=== PATIENT | female | born 1960 | race Caucasian/White ===

== ENCOUNTER 2018-03-16 06:15 | Outpatient (CLI) | payer MEDICAID ==
[2018-03-15 12:24] LABS: BASOPHILS 0.1 % (0-2); EOSINOPHILS 0.8 % (0-7); HEMATOCRIT 42.3 % (36.0-48.0); HEMOGLOBIN 14.9 g/dL (12-16); IMMATURE GRANULOCYTES 0.3 % (0-5); LYMPHOCYTES 22.3 % (15-50); MCH 31.4 pg (26.0-34.0); MCHC 35.2 g/dL (31.0-37.0); MCV 89.2 fL (80.0-100.0); MEAN PLATELET VOLUME 9.2 fL (7.4-10.4); MONOCYTES 5.4 % (2-11); NEUTROPHILS 71.1 % (40-80); PLATELET COUNT 247 10x3/uL (130-400); RBC 4.74 10x6/uL (4.00-5.40); RDW 12.2 % (11.5-14.5); WBC 14.5 10x3/uL (4.8-10.8)
[2018-03-15 12:58] LABS: CALC OSMOLALITY 284 mosm/kg (275-300); CALCIUM 9.2 mg/dL (8.5-10.1); CARBON DIOXIDE 29.9 mmol/L (21.0-32.0); CHLORIDE - SERUM 101 mmol/L (98-107); CREATININE - SERUM 0.7 mg/dL (0.6-1.3); GLUCOSE 159 mg/dL (74-106); POTASSIUM - SERUM 4.8 mmol/L (3.5-5.1); SODIUM 139 mmol/L (136-145); UREA NITROGEN 23 mg/dL (7-18); eGFR NON AFRICAN AMERICAN > 90 mL/min (90-120)
[~2018-03-16] VITALS: Ht 160 cm; Wt 84.8 kg
[~2018-03-16 06:15] MED LIST: GLUCOPHAGE1000 MG PO; IBUPROFEN800 MG PO; MULTIPLE VITAMI1 TA1 PO; VITAMIN C1000 MG PO
[2018-03-16 07:57] LABS: APPEARANCE HAZY (CLEAR); BILIRUBIN NEGATIVE (NEGATIVE); COLOR STRAW (YELLOW); GLUCOSE NEGATIVE (NEGATIVE); KETONE NEGATIVE (NEGATIVE); NITRITE NEGATIVE (NEGATIVE); PROTEIN 1+ mg/dL (NEGATIVE); SPECIFIC GRAVITY 1.015 (1.005-1.020); UROBILINOGEN NORMAL (NORMAL)
[2018-03-16 08:07] LABS: BACTERIA MODERATE /hpf (NONE SEEN); EPITHELIAL CELL CAST OCC /lpf (NONE SEEN); MUCUS <1+ /lpf (NONE SEEN); RED CELLS - URINE 0-5 /hpf (0-5)
[2018-03-16 08:15] VITALS: BP 142/69; Ht 160 cm; Wt 84.8 kg
[2018-03-16] MEDS ORDERED: BACTRIM DS TABL1 TAB PO (09:24)
[2018-03-16] MEDS ORDERED: DIFLUCAN100 MG PO (09:25)
== END 2018-03-16 09:55 | disposition home or self-care (01) ==
LOC: D.OPS 06:15 → EDSTATUS 09:15 → D.PAN 09:15 → D.OPS 09:55
PROVIDERS: Surgery
DX: N39.0 Urinary tract infection, site not specified (principal); Z53.09 Procedure and treatment not carried out because of other contraindication; Z01.812 Encounter for preprocedural laboratory examination

== ENCOUNTER 2018-04-15 05:30 | Day surgery (SDC) | payer MEDICAID ==
[2018-04-14 08:42] LABS: BASOPHILS 0.2 % (0-2); EOSINOPHILS 1.3 % (0-7); HEMATOCRIT 37.3 % (36.0-48.0); IMMATURE GRANULOCYTES 0.2 % (0-5); LYMPHOCYTES 27.6 % (15-50); MCH 31.3 pg (26.0-34.0); MCHC 34.9 g/dL (31.0-37.0); MCV 89.7 fL (80.0-100.0); MEAN PLATELET VOLUME 8.8 fL (7.4-10.4); MONOCYTES 5.8 % (2-11); NEUTROPHILS 64.9 % (40-80); PLATELET COUNT 262 10x3/uL (130-400); RBC 4.16 10x6/uL (4.00-5.40); RDW 12.2 % (11.5-14.5)
[2018-04-14 09:10] LABS: CALC OSMOLALITY 277 mosm/kg (275-300); CARBON DIOXIDE 32.7 mmol/L (21.0-32.0); CHLORIDE - SERUM 100 mmol/L (98-107); CREATININE - SERUM 0.6 mg/dL (0.6-1.3); GLUCOSE 172 mg/dL (74-106); POTASSIUM - SERUM 4.6 mmol/L (3.5-5.1); SODIUM 137 mmol/L (136-145); UREA NITROGEN 12 mg/dL (7-18); eGFR NON AFRICAN AMERICAN > 90 mL/min (90-120)
[~2018-04-15] VITALS: Ht 160 cm; Wt 85.3 kg
--- NOTE | ~2018-04-15 | OP ---
PATIENT NAME: MARILUZ CONTEH MEDICAL RECORD: [id number] :60 LOCATION:D.OPS ADMISSION DATE: SURGEON: KIET POE MD DATE OF OPERATION: 04/15/2018 PREOPERATIVE DIAGNOSES: 1. Recurrent ventral incisional hernia. 2. Diabetes mellitus. 3. Asthma. 4. Arthritis. 5. Tobacco dependency syndrome. POSTOPERATIVE DIAGNOSES: 1. Recurrent ventral incisional hernia. 2. Diabetes mellitus. 3. Asthma. 4. Arthritis. 5. Tobacco dependency syndrome. PROCEDURE: Ventral hernia repair. SURGEON: Kiet Poe MD HEAD FILTER PRESS TENDER: Patricia Abbasi REPORT OF OPERATION: The patient's abdomen was prepped and draped in sterile fashion. A midline incision was made just above the umbilicus. Electrocautery was used to dissect through the subcutaneous tissues. We encountered the patient's hernia sac. This hernia sac was penetrated and as we entered the hernia sac, we see there was some fatty tissue, which was adherent to the peritoneal wall. The hernia sac was taken down to the fascial edges and any fatty attachments were released. The patient had had a previous laparoscopic ventral hernia repair and there was a piece of mesh that was present. This piece of mesh was affixed to the right side of the abdomen, but was no longer fixed to the left side of the abdomen. This left approximately 3 cm wide defect in the midline. The mesh had some metallic clips present from an EndoTacker device and these clips were removed. The mesh was then cleaned off and irrigated. Again, it was attached very well to the right side. We decided just to use this piece of mesh for our repair. The fascia was cleared off in all directions. Still had good healthy appearing fascia. Then, we cleaned the fatty tissue off of the fascia anteriorly. The indwelling mesh was tacked down with multiple interrupted 0 Prolenes in all directions. We then irrigated out the mesh one last time and reapproximated the fascia over top of the mesh using a running 0 Vicryl. The subcutaneous tissues were reapproximated with interrupted 3-0 Vicryl, and the skin was closed with running subcutaneous 5-0 Monocryl. A total of 20 mL of 0.25% Marcaine with epinephrine was infused into the surrounding tissues and the wound was dressed appropriately. COMPLICATIONS: None. CONDITION: Stable. ANESTHESIA: General endotracheal and local. BLOOD LOSS: Minimal. OPERATIVE REPORT [id number] MARILUZ CONTEH LAI TRANSINT:[id number] Voice Confirmation ID: [id number] DOCUMENT ID: [id number] KIET POE MD at 1110 CC: [id number] DICTATION DATE: 04/15/18918 ELECTRONIC DATA PROCESSING AUDITOR: 04/15/18 1133 [facility] 04/15/[address] [address]
[~2018-04-15 05:30] MED LIST changes: +BACTRIM DS TABL1 TAB PO; +DIFLUCAN100 MG PO
[2018-04-15 06:35] VITALS: BP 143/63; Ht 160 cm; Wt 85.3 kg
[2018-04-15] MEDS ORDERED: DILAUDID2 MG PO (09:14)
== END 2018-04-15 12:15 | disposition home or self-care (01) ==
LOC: D.OPS 05:30 → D.PAN 08:00 → D.OPS 08:00
PROVIDERS: Anesthesiology; Surgery
DX: K43.2 Incisional hernia without obstruction or gangrene (principal); E11.9 Type 2 diabetes mellitus without complications; J45.909 Unspecified asthma, uncomplicated; M19.90 Unspecified osteoarthritis, unspecified site; F17.200 Nicotine dependence, unspecified, uncomplicated; Z01.812 Encounter for preprocedural laboratory examination

== ENCOUNTER 2018-04-20 22:41 | Inpatient (IN) | payer MEDICAID ==
[~2018-04-20] VITALS: Ht 160 cm; Wt 81.6 kg
--- NOTE | ~2018-04-20 | EC ---
PATIENT:MARILUZ CONTEH DATE OF SERVICE: 04/21/18 SEX: F MEDICAL RECORD: [id number] DATE OF : 60 LOCATION:D.MS [id number] AGE OF PATIENT: 58 ADMISSION DATE: 04/21/18 REFERRING PHYSICIAN: INTERPRETING PHYSICIAN: SATISH LEWIS MD ECHOCARDIOGRAM REPORT ECHO CHARGES 4 ECHO COMPLETE Date: 04/22 CLINICAL DIAGNOSIS: CHF ECHOCARDIOGRAPHIC MEASUREMENTS (adult normal given) AC root (d.<3.7cm) 3.5 cm LV Septum d (<1.2 cm> 1.5 cm Valve Excursion 1.5 cm LV Septum (systole) 1.9 cm Left Atria (s.<4.0cm> 4.4 cm LVPW d(<1.2cm) 1.6 cm RV (d.<2.3cm) 2.9 cm LVPW (sytole) 1.9 cm LV diastole(<5.6CM) 5.3 cm MV E-F(>70mm/sec) cm LV systole 3.5 cm LVOT Diameter 1.7 cm MV exc.(>10mm) 1.4 cm Est.ejection fraction (50-75%) % DOPPLER: LVIT cm/sec A 112 cm/sec E 94.0 cm/sec LA cm/sec RVSP 43 mmHg LVOT 106 cm/sec AOP1/2T m/s Asc. Ao 132 cm/sec RVOT 92 cm/sec RA cm/sec PA 132 cm/sec AV Gradient Peak 6.92 mmHg AV Mean 3.67 mmHg AV Area 1.8 cm MV Gradient Peak 8.73 mmHg MV Mean 3.43 mmHg MV Area cm COMMENTS: Travel Registered Nurse Pacu: Rafael KUHN Furniture Crater: 1 Dr. Lewis TAPE# PACS Pericardial Effusion N DATE OF SERVICE: 04/22/2018 ECHOCARDIOGRAM FINDINGS: 1. Left ventricular chamber size is within normal limits. Left ventricular systolic function is normal. Overall ejection fraction estimated at 60%. 2. Left atrium is enlarged at 4.4 cm. Right atrium and right ventricular chamber sizes are within normal limits. 3. Valvular structures have normal structure and motion. ECHOCARDIOGRAM REPORT [id number] MARILUZ CONTEH 4. Doppler interrogation reveals [id number] mitral regurgitation, [id number] tricuspid regurgitation, no other valvular insufficiency or stenosis. Pulmonary systolic pressure is estimated 43 mmHg. 5. No evidence of pericardial effusion or left ventricular thrombus. TRANSINT:[id number] Voice Confirmation ID: [id number] DOCUMENT ID: [id number] SATISH LEWIS MD at 1843 CC: [id number] DICTATION DATE: 04/22/18 1643 ICER MACHINE OPERATOR: 04/22/18 1930 ADM IN [facility] [address] [place] [address]
[~2018-04-20 22:41] MED LIST changes: +DILAUDID2 MG PO
[2018-04-20 23:42] LABS: HEMATOCRIT 24.2 % (36.0-48.0); HEMOGLOBIN 8.6 g/dL (12-16); MCH 31.9 pg (26.0-34.0); MCHC 35.5 g/dL (31.0-37.0); MCV 89.6 fL (80.0-100.0); NEUTROPHILS 79.1 % (40-80); RDW 12.9 % (11.5-14.5); WBC 16.4 10x3/uL (4.8-10.8)
[2018-04-20 23:43] LABS: PLATELET COUNT 363 10x3/uL (130-400)
[2018-04-21 00:03] LABS: ALBUMIN 2.8 g/dL (3.4-5.0); ALKALINE PHOSPHATASE 271 U/L (46-116); ALT (SGPT) 59 U/L (10-68); BILIRUBIN - TOTAL 0.64 mg/dL (0.2-1.3); CALC OSMOLALITY 269 mosm/kg (275-300); CALCIUM 8.5 mg/dL (8.5-10.1); CARBON DIOXIDE 26.9 mmol/L (21.0-32.0); CHLORIDE - SERUM 97 mmol/L (98-107); CREATININE - SERUM 0.8 mg/dL (0.6-1.3); GLUCOSE 195 mg/dL (74-106); POTASSIUM - SERUM 4.3 mmol/L (3.5-5.1); PROTEIN - SERUM 7.1 g/dL (6.4-8.2); SODIUM 133 mmol/L (136-145); UREA NITROGEN 9 mg/dL (7-18); eGFR NON AFRICAN AMERICAN 78 mL/min (90-120)
[2018-04-21 00:05] LABS: APPEARANCE CLEAR (CLEAR); COLOR YELLOW (YELLOW); GLUCOSE NEGATIVE (NEGATIVE); KETONE NEGATIVE (NEGATIVE); NITRITE NEGATIVE (NEGATIVE); PROTEIN 3+ mg/dL (NEGATIVE); UROBILINOGEN NORMAL (NORMAL)
[2018-04-21 00:06] LABS: BILIRUBIN NEGATIVE (NEGATIVE)
[2018-04-21 00:07] LABS: BACTERIA MODERATE /hpf (NONE SEEN); RED CELLS - URINE 0-5 /hpf (0-5)
[2018-04-21 02:26] VITALS: BP 126/76; BP 146/79
[2018-04-21 04:00] VITALS: BP 111/58
[2018-04-21 06:18] VITALS: BP 95/51; BMI 31.9
[2018-04-21 09:33] VITALS: BP 94/49
[2018-04-21 11:30] VITALS: BP 104/52
[2018-04-21 13:01] VITALS: BMI 31.8
[2018-04-21 14:53] VITALS: Ht 160 cm; Wt 81.6 kg
[2018-04-21 17:13] LABS: CKMB 1.9 U/L (0.0-3.6); CREATINE KINASE 32 UL (21-215)
[2018-04-21 17:23] LABS: TROPONIN-I 0.129 ng/mL (0.000-0.060)
[2018-04-21 20:00] VITALS: BP 122/46
[2018-04-21 21:56] LABS: CKMB 1.9 U/L (0.0-3.6); CREATINE KINASE 34 UL (21-215)
[2018-04-21 22:00] LABS: TROPONIN-I 0.107 ng/mL (0.000-0.060)
[2018-04-22] VITALS (7 sets, daily range): BP systolic 112–146; BP diastolic 41–66
[2018-04-22 04:29] LABS: BASOPHILS 0.1 % (0-2); EOSINOPHILS 0.6 % (0-7); IMMATURE GRANULOCYTES 0.3 % (0-5); LYMPHOCYTES 18.5 % (15-50); MCH 31.4 pg (26.0-34.0); MCHC 33.6 g/dL (31.0-37.0); MEAN PLATELET VOLUME 9.1 fL (7.4-10.4); MONOCYTES 7.1 % (2-11); NEUTROPHILS 73.4 % (40-80); PLATELET COUNT 304 10x3/uL (130-400); RBC 2.36 10x6/uL (4.00-5.40); RDW 13.1 % (11.5-14.5); WBC 12.6 10x3/uL (4.8-10.8)
[2018-04-22 05:00] LABS: HEMOGLOBIN 7.4 g/dL (12-16); MCV 93.2 fL (80.0-100.0)
[2018-04-22 05:07] LABS: CALC OSMOLALITY 268 mosm/kg (275-300); CALCIUM 7.8 mg/dL (8.5-10.1); CARBON DIOXIDE 30.8 mmol/L (21.0-32.0); CHLORIDE - SERUM 98 mmol/L (98-107); CKMB 1.1 U/L (0.0-3.6); CREATINE KINASE 21 UL (21-215); CREATININE - SERUM 0.8 mg/dL (0.6-1.3); GLUCOSE 178 mg/dL (74-106); POTASSIUM - SERUM 3.8 mmol/L (3.5-5.1); SODIUM 133 mmol/L (136-145); UREA NITROGEN 11 mg/dL (7-18); eGFR NON AFRICAN AMERICAN 78 mL/min (90-120)
[2018-04-22 05:08] LABS: TROPONIN-I 0.113 ng/mL (0.000-0.060)
[2018-04-22 12:15] LABS: CKMB 1.3 U/L (0.0-3.6); CREATINE KINASE 31 UL (21-215)
[2018-04-22 16:48] LABS: CKMB 1.3 U/L (0.0-3.6); CREATINE KINASE 33 UL (21-215)
[2018-04-22 16:50] LABS: TROPONIN-I 0.067 ng/mL (0.000-0.060)
[2018-04-22 22:58] LABS: CKMB 1.1 U/L (0.0-3.6); CREATINE KINASE 32 UL (21-215)
[2018-04-22 22:59] LABS: TROPONIN-I 0.085 ng/mL (0.000-0.060)
[2018-04-23] VITALS (7 sets, daily range): BP systolic 113–151; BP diastolic 51–80
[2018-04-23 05:51] LABS: BASOPHILS 0.1 % (0-2); EOSINOPHILS 1.3 % (0-7); HEMATOCRIT 26.4 % (36.0-48.0); HEMOGLOBIN 8.7 g/dL (12-16); IMMATURE GRANULOCYTES 0.6 % (0-5); LYMPHOCYTES 23.7 % (15-50); MCH 30.5 pg (26.0-34.0); MCV 92.6 fL (80.0-100.0); MEAN PLATELET VOLUME 9.2 fL (7.4-10.4); MONOCYTES 7.6 % (2-11); NEUTROPHILS 66.7 % (40-80); PLATELET COUNT 314 10x3/uL (130-400); RDW 14.4 % (11.5-14.5); WBC 10.4 10x3/uL (4.8-10.8)
[2018-04-23 05:55] LABS: ANION GAP 10.2 mmol/L (8-16); CARBON DIOXIDE 30.7 mmol/L (21.0-32.0); POTASSIUM - SERUM 3.9 mmol/L (3.5-5.1)
[2018-04-23 05:59] LABS: RBC 2.85 10x6/uL (4.00-5.40)
[2018-04-23 06:22] LABS: CREATININE - SERUM 0.9 mg/dL (0.6-1.3)
[2018-04-24 05:21] LABS: BASOPHILS 0.2 % (0-2); EOSINOPHILS 1.4 % (0-7); HEMATOCRIT 27.9 % (36.0-48.0); HEMOGLOBIN 9.1 g/dL (12-16); IMMATURE GRANULOCYTES 0.3 % (0-5); LYMPHOCYTES 17.8 % (15-50); MCH 30.5 pg (26.0-34.0); MCHC 32.6 g/dL (31.0-37.0); MCV 93.6 fL (80.0-100.0); MEAN PLATELET VOLUME 9.1 fL (7.4-10.4); MONOCYTES 7.2 % (2-11); NEUTROPHILS 73.1 % (40-80); PLATELET COUNT 356 10x3/uL (130-400); RBC 2.98 10x6/uL (4.00-5.40); RDW 14.6 % (11.5-14.5); WBC 12.3 10x3/uL (4.8-10.8)
[2018-04-24 05:33] LABS: CALC OSMOLALITY 273 mosm/kg (275-300); CALCIUM 8.1 mg/dL (8.5-10.1); CARBON DIOXIDE 30.4 mmol/L (21.0-32.0); CHLORIDE - SERUM 96 mmol/L (98-107); CREATININE - SERUM 0.8 mg/dL (0.6-1.3); GLUCOSE 210 mg/dL (74-106); POTASSIUM - SERUM 4.2 mmol/L (3.5-5.1); SODIUM 132 mmol/L (136-145); UREA NITROGEN 22 mg/dL (7-18); eGFR NON AFRICAN AMERICAN 78 mL/min (90-120)
[2018-04-24 11:05] VITALS: BP 105/46
[2018-04-24 14:46] VITALS: BP 118/50
[2018-04-24] MEDS ORDERED: ZITHROMAX250 MG PO (15:00)
[2018-04-24] MEDS ORDERED: NICODERM C1 PATCH .1 TRANSDERM (15:00)
[2018-04-24] MEDS ORDERED: LEVAQUIN750 MG PO (15:00)
[2018-04-24] MEDS ORDERED: LASIX40 MG PO (15:03)
[2018-04-24] MEDS ORDERED: K-TAB10 MEQ PO (15:03)
[2018-04-24] MEDS ORDERED: PERCOCET 5-3251 TAB PO (15:06)
[2018-04-24] MEDS ORDERED: TORADOL10 MG PO (15:06)
== END 2018-04-24 15:30 | disposition home or self-care (01) | DRG 919 ==
LOC: D.ER 22:41 → D.MS 04-21 02:32 → OBSVTIME 04-21 02:32 → D.EDHOLD 04-21 02:32 → D.MS 04-21 02:44
PROVIDERS: Family Medicine; Internal Medicine Cardiovascular Disease; Internal Medicine Nephrology
DX: L76.32 Postprocedural hematoma of skin and subcutaneous tissue following other procedure (principal); J18.9 Pneumonia, unspecified organism; I50.23 Acute on chronic systolic (congestive) heart failure; J96.01 Acute respiratory failure with hypoxia; J44.0 Chronic obstructive pulmonary disease with (acute) lower respiratory infection; N39.0 Urinary tract infection, site not specified; E87.1 Hypo-osmolality and hyponatremia; I24.8 Other forms of acute ischemic heart disease; D62 Acute posthemorrhagic anemia; F17.213 Nicotine dependence, cigarettes, with withdrawal; Y83.8 Other surgical procedures as the cause of abnormal reaction of the patient, or of later complication, without mention of misadventure at the time of the procedure; K59.09 Other constipation; E11.9 Type 2 diabetes mellitus without complications; G89.29 Other chronic pain; M54.9 Dorsalgia, unspecified